=== PATIENT | female | born 1995 | race Caucasian/White ===

== ENCOUNTER 2017-05-17 01:12 | Emergency (ER) | payer SELFPAY ==
[2017-05-17 01:13] VITALS: BMI 28.1
[2017-05-17 01:28] VITALS: BP 129/67; PULSE 66; RESP 18; TEMP 97.9; O2SAT 99
[2017-05-17] MEDS ORDERED: Ciprofloxacin/Dexamethasone OTIC SUSP AD ONE (01:32)
--- NOTE | 2017-05-17 01:34 | ED PDOC ---
Arrival/HPI - General Chief Complaint: ENT Problem Time Seen by Provider: 05/17/17 01:20 Historian: Patient - History of Present Illness Narrative History of Present Illness (Text): 05/17/17 01:32 Manuela Gerardo is a 21 year old female, with a history of seizures, presents to the emergency department complaining of right ear pain since yesterday. States she when swimming 2 days prior, after which the symptoms presented. Denies any fever, chills, headache, dizziness, difficulty breathing, or any other complaints at this time. Time/Duration: Other (yesterday ) Symptom Onset: Gradual Severity Level: Mild Activities at Onset: Light Past Medical History - Provider Review Nursing Documentation Reviewed: Yes - Cardiac Hx Cardiac Disorders: No - Pulmonary Hx Respiratory Disorders: No - Neurological Hx Neurological Disorder: Yes Hx Seizures: Yes - HEENT Hx HEENT Disorder: No - Renal Hx Renal Disorder: No - Endocrine/Metabolic Hx Endocrine Disorders: No - Hematological/Oncological Hx Blood Disorders: No - Integumentary Hx Dermatological Disorder: No - Musculoskeletal/Rheumatological Hx Musculoskeletal Disorders: No - Gastrointestinal Hx Gastrointestinal Disorders: No - Genitourinary/Gynecological Hx Genitourinary Disorders: No - Psychiatric Hx Psychophysiologic Disorder: No Hx Anxiety: No Hx Substance Use: No - Surgical History Hx Abdominal Aortic Aneurysm Repair: No Hx Appendectomy: Yes Family/Social History - Physician Review Nursing Documentation Reviewed: Yes Family/Social History: No Known Family HX Smoking Status: Never Smoked Hx Alcohol Use: No Hx Substance Use: No Allergies/Home Meds Allergies/Adverse Reactions: Allergies No Known Allergies Allergy (Verified 05/17/17 01:28) Home Medications: Home Meds Medication Instructions Recorded Confirmed lamoTRIgine [LaMICtal] 200 mg PO BID 07/31/15 05/17/17 Review of Systems - Physician Review All systems were reviewed & negative as marked: Yes - Review of Systems Constitutional: Normal. absent: Fatigue, Fevers ENT: Other (right ear pain ). absent: Hearing Changes Respiratory: absent: SOB, Cough, Sputum Cardiovascular: Normal Gastrointestinal: Normal Neurological: Normal. absent: Headache, Dizziness Physical Exam Vital Signs Reviewed: Yes Vital Signs Temp Pulse Resp BP Pulse Ox 05/17/17 01:25 97.9 F 66 18 129/67 99 Temperature: Afebrile Blood Pressure: Normal Pulse: Regular Respiratory Rate: Normal Appearance: Positive for: Well-Appearing, Non-Toxic, Comfortable Pain Distress: None Mental Status: Positive for: Alert and Oriented X 3 - Systems Exam Head: Present: Atraumatic, Normocephalic Pupils: Present: PERRL Conjunctiva: Present: Normal Ears: Present: Erythema (right erythematous ear canal ), Other (right auricle tenderness to palpation ). No: Normal Canal, TM Bulging Mouth: Present: Moist Mucous Membranes. No: Dry Respiratory/Chest: Present: Clear to Auscultation, Good Air Exchange. No: Respiratory Distress, Accessory Muscle Use Cardiovascular: Present: Regular Rate and Rhythm, Normal S1, S2. No: Murmurs Abdomen: Present: Normal Bowel Sounds. No: Tenderness, Distention, Peritoneal Signs Upper Extremity: Present: Normal Inspection. No: Cyanosis, Edema Lower Extremity: Present: Normal Inspection. No: Edema Neurological: Present: GCS=15, CN II-XII Intact, Speech Normal, Motor Func Grossly Intact, Normal Sensory Function Skin: Present: Warm, Dry, Normal Color. No: Rashes Psychiatric: Present: Alert, Oriented x 3, Normal Insight, Normal Concentration Medical Decision Making ED Course and Treatment: 05/17/17 01:36 Impression: A 21 year old female who presents to the emergency department complaining of right ear pain since yesterday Differential Diagnosis included but are not limited to: Otitis Media Plan: -- Citrodix -- Motrin -- Reassess and disposition Progress Notes: 05/17/17 01:56 On re-evaluation, patient feels better and is in no acute distress. I have discussed the results and plan with the patient, who expresses understanding. Patient in agreement with plan to be discharged home. Patient is stable for discharge. Patient was instructed to follow up with physician or return if symptoms worsen or new concerning symptoms arise. - Medication Orders Current Medication Orders: Discontinued Medications Ciprofloxacin/Dexamethasone (Ciprodex Otic) 4 drop AD ONCE ONE PRN Reason: Protocol Stop: 05/17/17 01:33 Ibuprofen (Motrin Tab) 600 mg PO STAT STA Stop: 05/17/17 01:35 - Scribe Statement The provider has reviewed the documentation as recorded by the Clara Angel Provider Attestation: Provider Scribe Attestation: All medical record entries made by the Scribe were at my direction and personally dictated by me. I have reviewed the chart and agree that the record accurately reflects my personal performance of the history, physical exam, medical decision making, and the department course for this patient. I have also personally directed, reviewed, and agree with the discharge instructions and disposition. Disposition/Present on Arrival - Present on Arrival Any Indicators Present on Arrival: No History of DVT/PE: No History of Uncontrolled Diabetes: No Urinary Catheter: No History of Decub. Ulcer: No History Surgical Site Infection Following: None - Disposition Have Diagnosis and Disposition been Completed?: Yes Diagnosis: Otitis externa Disposition: HOME/ ROUTINE Disposition Time: 01:52 Patient Plan: Discharge Condition: STABLE Discharge Instructions (ExitCare): Otitis Externa (ED) Additional Instructions: Avoid placing any water in the affected ear/medication as prescribed/Advil as directed/follow up with your doctor this week Prescriptions: Ciprofloxacin/Dexamethasone [Ciprodex Otic] 4 drop AD BID #1 bottle
== END 2017-05-17 02:25 | disposition home or self-care (01) ==
LOC: ED 01:12
DX: H60.91 Unspecified otitis externa, right ear (principal)

== ENCOUNTER 2017-09-03 19:00 | Emergency (ER) | payer OTHER ==
[2017-09-03 19:30] VITALS: BMI 24.7
[2017-09-03 19:44] VITALS: RESP 16; TEMP 98; O2SAT 100
--- NOTE | 2017-09-03 21:24 | ED PDOC ---
Arrival/HPI - General Chief Complaint: Seizure Time Seen by Provider: 09/03/17 19:15 Historian: Patient - History of Present Illness Narrative History of Present Illness (Text): 09/03/17 19:20 Manuela Gerardo is a 22 year old female, whose past medical history includes seizures for the past 10 years, who presents to the emergency department complaining of a seizure and a headache prior to arrival. Patient denies any fever, chills, chest pain, shortness of breath, nausea, vomiting, diarrhea, urinary symptoms, back pain, neck pain, dizziness, or any other complaints. Time/Duration: Prior to Arrival Symptom Onset: Sudden Activities at Onset: Light Context: Home Past Medical History - Provider Review Nursing Documentation Reviewed: Yes - Cardiac Hx Cardiac Disorders: No - Pulmonary Hx Respiratory Disorders: No - Neurological Hx Neurological Disorder: Yes Hx Seizures: Yes - HEENT Hx HEENT Disorder: No - Renal Hx Renal Disorder: No - Endocrine/Metabolic Hx Endocrine Disorders: No - Hematological/Oncological Hx Blood Disorders: No - Integumentary Hx Dermatological Disorder: No - Musculoskeletal/Rheumatological Hx Musculoskeletal Disorders: No - Gastrointestinal Hx Gastrointestinal Disorders: No - Genitourinary/Gynecological Hx Genitourinary Disorders: No - Psychiatric Hx Psychophysiologic Disorder: No Hx Anxiety: No Hx Substance Use: No - Surgical History Hx Abdominal Aortic Aneurysm Repair: No Hx Appendectomy: Yes Family/Social History - Physician Review Nursing Documentation Reviewed: Yes Family/Social History: No Known Family HX Smoking Status: Never Smoked Hx Alcohol Use: No Hx Substance Use: No Allergies/Home Meds Allergies/Adverse Reactions: Allergies No Known Allergies Allergy (Verified 09/03/17 19:29) Home Medications: Home Meds Medication Instructions Recorded Confirmed lamoTRIgine [LaMICtal] 200 mg PO BID 07/31/15 09/03/17 Review of Systems - Review of Systems Constitutional: absent: Fevers, Night Sweats Eyes: absent: Vision Changes ENT: absent: Hearing Changes Respiratory: absent: SOB, Cough Cardiovascular: absent: Chest Pain Gastrointestinal: absent: Abdominal Pain Genitourinary Female: absent: Dysuria, Frequency Musculoskeletal: absent: Arthralgias, Back Pain Skin: absent: Rash, Pruritis Neurological: Headache, Seizure Endocrine: absent: Diaphoresis Hemo/Lymphatic: absent: Adenopathy Psychiatric: absent: Depression Physical Exam Vital Signs Reviewed: Yes Vital Signs Temp Pulse Resp BP Pulse Ox 10/29/17 21:00 88 16 100/67 100 09/03/17 19:41 98.0 F 93 H 16 97/65 L 100 Temperature: Afebrile Blood Pressure: Hypotensive Pulse: Tachycardic Respiratory Rate: Normal Appearance: Positive for: Well-Appearing, Non-Toxic, Comfortable Pain Distress: None Mental Status: Positive for: Alert and Oriented X 3 - Systems Exam Head: Present: Atraumatic, Normocephalic Pupils: Present: PERRL Extroacular Muscles: Present: EOMI Conjunctiva: Present: Normal Mouth: Present: Moist Mucous Membranes Neck: Present: Normal Range of Motion Respiratory/Chest: Present: Clear to Auscultation, Good Air Exchange. No: Respiratory Distress, Accessory Muscle Use Cardiovascular: Present: Regular Rate and Rhythm, Normal S1, S2. No: Murmurs Abdomen: Present: Normal Bowel Sounds. No: Tenderness, Distention, Peritoneal Signs Back: Present: Normal Inspection Upper Extremity: Present: Normal Inspection. No: Cyanosis, Edema Lower Extremity: Present: Normal Inspection. No: Edema Neurological: Present: GCS=15, CN II-XII Intact, Speech Normal Skin: Present: Warm, Dry, Normal Color. No: Rashes Psychiatric: Present: Alert, Oriented x 3, Normal Insight, Normal Concentration Medical Decision Making ED Course and Treatment: 09/03/17 19:20 Impression: 22 year old female complaining of seizure and headache tonight. Differential Diagnosis included but are not limited to: Seizure Plan: -- Keppra and Tylenol -- Reassess and disposition Prior Visits: Notes and results from previous visits were reviewed. Patient was last seen in the emergency department on 05/17/17 for right ear pain for one day. Patient was discharged home. Progress Notes:case d/w dr desir to add ketejinder and will follow up in office 09/03/17 22:52 - Medication Orders Current Medication Orders: Discontinued Medications Acetaminophen (Tylenol 325mg Tab) 650 mg PO STAT STA Stop: 09/03/17 19:36 Last Admin: 09/03/17 19:58 Dose: 650 mg MAR Pain/Vitals Document 09/03/17 19:58 JOL (Rec: 09/03/17 19:58 JOL [facility] [place]-[id number]) Pain Reassessment Is This A Pain ReAssessment? No Sleep Is patient sleeping during reassessment? No Presence of Pain Presence of Pain Yes Pain Scale Used Pain Scale Used Numeric Levetiracetam (Keppra) 500 mg PO STAT STA Stop: 09/03/17 20:58 - Scribe Statement The provider has reviewed the documentation as recorded by the Scribe Sulema Palacio Provider Scribe Attestation: All medical record entries made by the Scribe were at my direction and personally dictated by me. I have reviewed the chart and agree that the record accurately reflects my personal performance of the history, physical exam, medical decision making, and the department course for this patient. I have also personally directed, reviewed, and agree with the discharge instructions and disposition. Disposition/Present on Arrival - Present on Arrival Any Indicators Present on Arrival: No History of DVT/PE: No History of Uncontrolled Diabetes: No Urinary Catheter: No History of Decub. Ulcer: No History Surgical Site Infection Following: None - Disposition Have Diagnosis and Disposition been Completed?: Yes Diagnosis: Seizure disorder Disposition: HOME/ ROUTINE Disposition Time: 21:50 Condition: GOOD Discharge Instructions (ExitCare): Recurrent Seizures in Adults (ED) Prescriptions: Levetiracetam [Keppra] 500 mg PO BID #14 tablet Referrals: Colin Desir MD [Staff Provider] - Follow up with primary PCP,NO [Primary Care Provider] - Follow up with primary Forms: TE2 (Russian)
[2017-09-03 21:56] VITALS: BP 100/67; PULSE 88
== END 2017-09-03 21:49 | disposition home or self-care (01) ==
LOC: ED 19:00
DX: G40.909 Epilepsy, unspecified, not intractable, without status epilepticus (principal)